=== PATIENT | female | born 1950 | race Caucasian/White ===

== ENCOUNTER 2022-09-29 16:55 | Emergency (ER) | payer MEDICARE ==
--- NOTE | 2022-09-29 17:02 | ERPHSYRPT ---
- History of Present Illness Time Seen by Provider: 09/29/22 17:02 Source: patient, EMS Exam Limitations: no limitations Physician History: This is a 72-year-old white female patient was brought into the emergency department because of worsening shortness of breath and associated fever. Patient was seen at her outpatient clinic physician's office and found to have a fever 103 and was given Tylenol. By the time she has arrived to the emergency department, her fever has resolved and her temperature is 98.8 F. Patient wears 2 L of oxygen via nasal cannula and in the emergency department her oxygen saturation levels on this level of oxygen is 98 to 99%. Patient is currently being treated with chemotherapy for lung cancer. Her last dose of chemotherapy was 2 days ago. Patient denies chest pain. She has no abdominal pain. Patient is a former smoker. Patient does have a history of coronary artery disease. Timing/Duration: today Severity of Dyspnea-Max: mild Severity of Dyspnea-Current: mild Possible Cause: occasional episodes Modifying Factors: Improves With: activity Associated Symptoms: cough, edema (Mild pedal and ankle edema bilaterally), ankle swelling (Mild bilateral), No chest pain/discomfort, No calf pain Allergies/Adverse Reactions: No Known Drug Allergies Allergy (Unverified 09/29/22 17:00) Travel Risk - Coronavirus Screening Are you exhibiting any of the following symptoms?: Yes Symptoms: Fever, Shortness of Breath Close contact with a COVID-19 positive Pt in past 14-21 Days: No - Vaccine Status Have you recieved a Covid-19 vaccination: Yes - Review of Systems Constitutional: Fever Eyes: No Symptoms Ears, Nose, & Throat: No Symptoms Respiratory: Dyspnea Cardiac: No Symptoms Abdominal/Gastrointestinal: No Symptoms Genitourinary Symptoms: No Symptoms Musculoskeletal: No Symptoms Skin: No Symptoms Neurological: No Symptoms Psychological: No Symptoms Endocrine: No Symptoms Hematologic/Lymphatic: No Symptoms Immunological/Allergic: No Symptoms All Other Systems: Reviewed and Negative - Past Medical History Pertinent Past Medical History: Yes Cardiac History: Coronary Artery Disease, Myocardial Infarction ([place]) Respiratory History: Lung Cancer Musculoskeletal History: Arthritis - Past Surgical History Past Surgical History: Yes Cardiac: Cardiac Catheterization, Cardiac Stent Gastrointestinal: Appendectomy, Cholecystectomy Female Surgical History: Hysterectomy Other Surgical History: PORT A CATH - Social History Drug Use: none - Nursing Vital Signs Nursing Vital Signs: Initial Vital Signs O2 Sat by Pulse Oximetry 96 09/29/22 16:55 Pain Scale Pain Intensity 0 - Physical Exam General Appearance: no apparent distress, alert, obese Eye Exam: PERRL/EOMI, eyes nml inspection Ears, Nose, Throat Exam: hearing grossly normal, normal ENT inspection, normal pharynx Neck Exam: normal inspection, non-tender, supple, full range of motion Respiratory Exam: normal breath sounds, lungs clear, airway intact, No chest tenderness, No respiratory distress Cardiovascular/Chest Exam: normal heart sounds, regular rate/rhythm Abdominal/Gastrointestinal Exam: soft, normal bowel sounds, No tenderness Rectal Exam: not done Extremity Exam: non-tender, normal range of motion, pedal edema (Mild bilateral feet and ankles) Neurologic Exam: alert, oriented x 3, cooperative, shoe 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 as tested, normal mood/affect, nml cerebellar function, nml station & gait, sensation nml Skin Exam: normal color, warm, dry Lymphatic Exam: No adenopathy SpO2 Interpretation: normal O2 Delivery: Nasal Cannula (2 L nasal cannula) - Course Nursing assessment & vital signs reviewed: Yes EKG Interpreted by Me: RATE (105), Sinus Tach, NORMAL AXIS, NORMAL INTERVALS, NORMAL QRS, NORMAL ST-T, Other (No acute ischemic changes on today's EKG.) Ordered Tests: Active Orders 24 hr Category Date Time Status EKG-ER Only STAT Care 09/29/22 17:13 Active IV Insertion STAT Care 09/29/22 17:13 Active Pulse Oximetry (ED) STAT Care 09/29/22 17:13 Active CHEST 1 VIEW (PORTABLE) Stat Exams 09/29/22 17:14 Taken BLOOD CULTURE Stat Lab 09/29/22 18:55 Received CBC W DIFF Stat Lab 09/29/22 18:55 Results CMP Stat Lab 09/29/22 18:55 Completed Lactic Acid Stat Lab 09/29/22 18:50 Completed Manual Differential NC Stat Lab 09/29/22 18:55 Results Bowie Screen Stat Lab 09/29/22 18:55 Completed NT PRO BNPII Stat Lab 09/29/22 18:55 Completed Pathologist Review Stat Lab 09/29/22 18:55 Results TROPONIN Q4H Lab 09/29/22 18:55 Completed TROPONIN Q4H Lab 09/29/22 21:15 Ordered TROPONIN Q4H Lab 09/30/22 01:15 Ordered UA W/RFX UR CULTURE Stat Lab 09/29/22 20:12 Completed Medication Summary Generic Name Dose Route Start Last Admin Trade Name Raudel PRN Reason Stop Dose Admin Sodium Chloride 1,000 mls @ 100 mls/hr 09/29/22 17:15 09/29/22 19:00 Sodium Chloride 0.9% 1000 Ml IV 10/29/22 17:14 100 mls/hr .Q10H STEPHANIE Administration Levofloxacin 500 mg 09/29/22 20:45 Levofloxacin 500 Mg Tablet PO 09/29/22 20:46 STAT ONE Lab/Rad Data: Laboratory Result Diagrams 09/29/22 18:55 09/29/22 18:55 Laboratory Results 09/29/22 09/29/22 09/29/22 Range/Units 20:12 18:55 18:55 WBC (4.0-10.5) x10^3/uL RBC (4.1-5.4) x10^6/uL Hgb (12.0-16.0) g/dL Hct (35-47) % MCV (78-100) fL MCH (26-32) pg MCHC (32-36) g/dL RDW (11.5-14.0) % Plt Count (150-450) x10^3/uL MPV (7.5-11.0) fL Segmented Neutrophils (36.0-66.0) % Lymphocytes (Manual) (24-44) % Platelet Estimate (NORMAL) RBC Morphology Microcytosis Macrocytosis Smear Path Review Sodium (137-145) mmol/L Potassium (3.5-5.1) mmol/L Chloride (98-107) mmol/L Carbon Dioxide (22-30) mmol/L Anion Gap (5-15) MEQ/L BUN (7-17) mg/dL Creatinine (0.52-1.04) mg/dL Estimated GFR ML/MIN Glucose (74-106) mg/dL Lactic Acid (0.4-2.0) Calcium (8.4-10.2) mg/dL Total Bilirubin (0.2-1.3) mg/dL AST (14-36) U/L ALT (0-35) U/L Alkaline Phosphatase (38-126) U/L Troponin I < 0.012 (0.000-0.034) ng/mL NT-Pro-B Natriuret Pep (<300) pg/mL Serum Total Protein (6.3-8.2) g/dL Albumin (3.5-5.0) g/dL Urine Color Dark Yellow A (Yellow) Urine Appearance Clear (Clear) Urine pH 5.5 (4.6-8.0) Ur Specific [place] 1.025 (1.005-1.030) Urine Protein Trace A (Negative) Urine Glucose (UA) Negative (Negative) mg/dL Urine Ketones Trace A (Negative) Urine Blood Negative (Negative) Urine Nitrite Negative (Negative) Urine Bilirubin Negative (Negative) Urine Urobilinogen 1.0 A (0.2) mg/dL Ur Leukocyte Esterase Trace A (Negative) U Hyaline Cast (Auto) NONE SEEN (0-2) /LPF Urine Microscopic RBC 0-2 (0-5) /HPF Urine Microscopic WBC 6-10 A (0-5) /HPF Ur Epithelial Cells Moderate A (None Seen) /HPF Urine Bacteria None Seen (None Seen) /HPF Urine Culture Reflexed NO (NO) Monoscreen NEGATIVE (Negative) Influenza Type A Ag (NEGATIVE) Influenza Type B Ag (NEGATIVE) RSV (PCR) (NEGATIVE) SARS-CoV-2 (PCR) (NEGATIVE) 09/29/22 09/29/22 09/29/22 Range/Units 18:55 18:55 18:50 WBC 9.3 (4.0-10.5) x10^3/uL RBC 2.47 L (4.1-5.4) x10^6/uL Hgb 8.4 L (12.0-16.0) g/dL Hct 27.3 L (35-47) % MCV 110.5 H (78-100) fL MCH 34.0 H (26-32) pg MCHC 30.8 L (32-36) g/dL RDW 16.5 H (11.5-14.0) % Plt Count 69 L (150-450) x10^3/uL MPV 10.8 (7.5-11.0) fL Segmented Neutrophils 88 H (36.0-66.0) % Lymphocytes (Manual) 12 L (24-44) % Platelet Estimate NORMAL (NORMAL) RBC Morphology ABNORMAL Microcytosis 1+ Macrocytosis 1+ Smear Path Review Pending Sodium 136 L (137-145) mmol/L Potassium 3.7 (3.5-5.1) mmol/L Chloride 101 (98-107) mmol/L Carbon Dioxide 25 (22-30) mmol/L Anion Gap 13.3 (5-15) MEQ/L BUN 23 H (7-17) mg/dL Creatinine 0.92 (0.52-1.04) mg/dL Estimated GFR > 60.0 ML/MIN Glucose 124 H (74-106) mg/dL Lactic Acid 1.6 (0.4-2.0) Calcium 8.4 (8.4-10.2) mg/dL Total Bilirubin 1.20 (0.2-1.3) mg/dL AST 37 H (14-36) U/L ALT 40 H (0-35) U/L Alkaline Phosphatase 92 (38-126) U/L Troponin I (0.000-0.034) ng/mL NT-Pro-B Natriuret Pep 1610 (<300) pg/mL Serum Total Protein 6.3 (6.3-8.2) g/dL Albumin 3.4 L (3.5-5.0) g/dL Urine Color (Yellow) Urine Appearance (Clear) Urine pH (4.6-8.0) Ur Specific [place] (1.005-1.030) Urine Protein (Negative) Urine Glucose (UA) (Negative) mg/dL Urine Ketones (Negative) Urine Blood (Negative) Urine Nitrite (Negative) Urine Bilirubin (Negative) Urine Urobilinogen (0.2) mg/dL Ur Leukocyte Esterase (Negative) U Hyaline Cast (Auto) (0-2) /LPF Urine Microscopic RBC (0-5) /HPF Urine Microscopic WBC (0-5) /HPF Ur Epithelial Cells (None Seen) /HPF Urine Bacteria (None Seen) /HPF Urine Culture Reflexed (NO) Monoscreen (Negative) Influenza Type A Ag (NEGATIVE) Influenza Type B Ag (NEGATIVE) RSV (PCR) (NEGATIVE) SARS-CoV-2 (PCR) (NEGATIVE) 09/29/22 Range/Units 17:30 WBC (4.0-10.5) x10^3/uL RBC (4.1-5.4) x10^6/uL Hgb (12.0-16.0) g/dL Hct (35-47) % MCV (78-100) fL MCH (26-32) pg MCHC (32-36) g/dL RDW (11.5-14.0) % Plt Count (150-450) x10^3/uL MPV (7.5-11.0) fL Segmented Neutrophils (36.0-66.0) % Lymphocytes (Manual) (24-44) % Platelet Estimate (NORMAL) RBC Morphology Microcytosis Macrocytosis Smear Path Review Sodium (137-145) mmol/L Potassium (3.5-5.1) mmol/L Chloride (98-107) mmol/L Carbon Dioxide (22-30) mmol/L Anion Gap (5-15) MEQ/L BUN (7-17) mg/dL Creatinine (0.52-1.04) mg/dL Estimated GFR ML/MIN Glucose (74-106) mg/dL Lactic Acid (0.4-2.0) Calcium (8.4-10.2) mg/dL Total Bilirubin (0.2-1.3) mg/dL AST (14-36) U/L ALT (0-35) U/L Alkaline Phosphatase (38-126) U/L Troponin I (0.000-0.034) ng/mL NT-Pro-B Natriuret Pep (<300) pg/mL Serum Total Protein (6.3-8.2) g/dL Albumin (3.5-5.0) g/dL Urine Color (Yellow) Urine Appearance (Clear) Urine pH (4.6-8.0) Ur Specific [place] (1.005-1.030) Urine Protein (Negative) Urine Glucose (UA) (Negative) mg/dL Urine Ketones (Negative) Urine Blood (Negative) Urine Nitrite (Negative) Urine Bilirubin (Negative) Urine Urobilinogen (0.2) mg/dL Ur Leukocyte Esterase (Negative) U Hyaline Cast (Auto) (0-2) /LPF Urine Microscopic RBC (0-5) /HPF Urine Microscopic WBC (0-5) /HPF Ur Epithelial Cells (None Seen) /HPF Urine Bacteria (None Seen) /HPF Urine Culture Reflexed (NO) Monoscreen (Negative) Influenza Type A Ag NEGATIVE (NEGATIVE) Influenza Type B Ag NEGATIVE (NEGATIVE) RSV (PCR) NEGATIVE (NEGATIVE) SARS-CoV-2 (PCR) NEGATIVE (NEGATIVE) - Progress Progress: improved, re-examined Air Movement: good Progress Note: 09/29/22 20:38 Chest x-ray was interpreted by me. There is a right upper lobe mass but no ob vious infiltrate on my assessment of this film. This patient has medical issues of moderate complexity. The level of complexity and the work-up performed is based on review of the patient's past medical history, history of present illness, review of the patient's medication list, review of the patient's drug allergies and physical findings on examination. The work-up included placement of intravenous line and infusion of normal saline solution, blood cultures, CBC, CMP, chest x-ray, lactic acid level and urinalysis. At this point I reviewed all of the results of the above studies that were performed. I do not have a source of the the fever that she had prior to arrival. Patient has been afebrile during her stay here. She has not been tachycardic. Her room air oxygenation level has been 98%. She is in no pain. Since the patient is on chemotherapy, and supposedly had an episode of fever as high as 103 F prior to arrival, I will place her on Levaquin. I will provide her with an oral dose now and then 7 days of Levaquin 500 mg daily. Patient desires to go home and she said she lives close and if there is any issues she will return. I think this is reasonable. Patient also has hemoglobin 8.4. I do not have a comparison, prior hemoglobin level. 09/29/22 20:47 Blood Culture(s) Obtained: Yes Antibiotics given: Yes Counseled pt/family regarding: lab results, diagnosis, need for follow-up, mariza elaine Medical Desision Making - Discussion of managment Reviewed:: Test results Agreed on:: Treatment plan, need for follow-up - Diagnostic Testing Diagnostic test were ordered, analyzed, and reviewed by me: Yes Radiological Interpretation: Interpreted by me - Risk of complications The pt has a mod risk of morbidity or mortality based on: Need for prescription drug management - Departure Departure Disposition: Home Clinical Impression: Lung cancer, Fever of unknown origin, Anemia Condition: Stable Critical Care Time: No Referrals: MAIH PRESTON [Primary Care Provider] - Follow up/PCP as directed Additional Instructions: Drink plenty of fluids. Take your antibiotics as prescribed. Take all your other medication as prescribed. Contact your primary care provider and your oncologist tomorrow to obtain further instructions and management. Prescriptions: Levofloxacin [Levaquin 500 MG Tablet] 500 mg PO DAILY #7 tablet
[2022-09-29] MEDS ORDERED: Sodium Chloride 0.9% 1000 ML 1,000 ML IV SCH (17:15)
[2022-09-29 18:18] LABS: INFLUENZA A NEGATIVE (NEGATIVE); INFLUENZA B NEGATIVE (NEGATIVE); RESPIRATORY SYNCTIAL VIRUS NEGATIVE (NEGATIVE); SARS-CoV-2 Xpert Express NEGATIVE (NEGATIVE)
[2022-09-29] MEDS ORDERED: Sodium Chloride 0.9% 1000 ML 1,000 ML ONE (18:57)
[2022-09-29 19:02] LABS: Hematocrit 27.3 % (35-47); Hemoglobin 8.4 g/dL (12.0-16.0); Mean Cell Volume 110.5 fL (78-100); Mean Corpuscular Hgb Concent. 30.8 g/dL (32-36); Mean Platelet Volume 10.8 fL (7.5-11.0); Platelet Count 69 x10^3/uL (150-450); Red Blood Count 2.47 x10^6/uL (4.1-5.4); Red Cell Distribution Width 16.5 % (11.5-14.0); White Blood Count 9.3 x10^3/uL (4.0-10.5)
[2022-09-29 19:25] LABS: ALBUMIN 3.4 g/dL (3.5-5.0); ALKALINE PHOSPHATASE 92 U/L (38-126); ANION GAP 13.3 MEQ/L (5-15); BLOOD UREA NITROGEN 23 mg/dL (7-17); CHLORIDE 101 mmol/L (98-107); Calcium 8.4 mg/dL (8.4-10.2); Carbon Dioxide 25 mmol/L (22-30); Creatinine 1 0.92 mg/dL (0.52-1.04); EST GLOMERULAR FILTRATION RATE > 60.0 ML/MIN; Glucose 124 mg/dL (74-106); NT PRO BNPII 1610 pg/mL (<300); Potassium 3.7 mmol/L (3.5-5.1); SGOT/AST 37 U/L (14-36); SGPT/ALT 40 U/L (0-35); SODIUM 136 mmol/L (137-145); Total Protein 6.3 g/dL (6.3-8.2)
[2022-09-29 20:34] LABS: Lymphocytes 12 % (24-44); Macrocytosis 1+; Microcytosis 1+; Neutrophils 88 % (36.0-66.0); Platelet Estimate NORMAL (NORMAL); Total Cells Counted 100
[2022-09-29 20:34] LABS: Appearance Clear (Clear); Bacteria None Seen /HPF (None Seen); Bilirubin Negative (Negative); Blood Negative (Negative); Epithelial Cells Moderate /HPF (None Seen); Glucose, Urine Negative (Negative); Hyaline Casts NONE SEEN /LPF (0-2); Ketones Trace (Negative); Leukocyte Esterase Trace (Negative); Nitrite Negative (Negative); Ph 5.5 (4.6-8.0); Protein,Urine Dip Trace (Negative); RBC 0-2 /HPF (0-5); Specific Gravity 1.025 (1.005-1.030)
[2022-09-29 20:35] LABS: ADD URINE CULTURE? NO (NO)
[2022-09-29] MEDS ORDERED: Levofloxacin 500 MG Tablet PO ONE (20:45)
[2022-09-29] MEDS ORDERED: Levofloxacin 500 MG Tablet ONE (20:48)
[2022-09-29 21:11] VITALS: BP 106/73; PULSE 97; O2SAT 97
--- NOTE | 2022-09-30 08:32 | XRAY ---
Indication: Short of breath. Fever. History right upper lobe cancer. Comparison: None Portable chest demonstrates right upper lobe consolidation with volume loss presumed known malignancy. Subsequent hemidiaphragm elevation. Remaining heart and left lung unremarkable with incidental right Port-A-Cath. Bony thorax intact.
== END 2022-09-29 21:24 | disposition home or self-care (01) ==
LOC: ED 16:55
DX: R50.9 Fever, unspecified (principal); D64.9 Anemia, unspecified; C34.91 Malignant neoplasm of unspecified part of right bronchus or lung; R06.02 Shortness of breath; Z99.81 Dependence on supplemental oxygen; I25.10 Atherosclerotic heart disease of native coronary artery without angina pectoris
CPT/HCPCS: 0241U; 36000; 36415; 71045; 80053; 81001; 83605; 83880; 84484; 85025; 86308; 87040; 93005; 94760; 99284; A9270-GY

== ENCOUNTER 2022-11-03 12:39 | Emergency (ER) | payer MEDICARE ==
[2022-11-03 13:53] VITALS: PULSE 100
[2022-11-03 14:03] VITALS: BP 113/58; O2SAT 81
--- NOTE | 2022-11-03 14:21 | ERPHSYRPT ---
- History of Present Illness Time Seen by Provider: 11/03/22 12:45 Source: patient Exam Limitations: no limitations Patient Subjective Stated Complaint: Pt c/o of rectum pain that she thinks is due to hemorrhoids Triage Nursing Assessment: Pt was brought to the ER by her son, samina trinidad, denies pain at this time, pt stated that she feels like she has spasms in her rectum and causing a lot of pain in the hemorrhoids, pt is receiving chemo for lung cancer at this time and has been for some time with a variety of different meds due to different side effects to her heart, pulses normal, skin n/w/d Physician History: Patient states that she has rectal pain. Has been going on for approximately 1 week. No falls or trauma. Patient does take chemotherapy. She has no obvious rectal bleeding. Patient states that she does have a history of hemorrhoids. No fever no chills. No systemic signs of illness. Patient has been taking home Preparation H for pain control. Feels that this only helped somewhat. She then states when she has a bowel movement she feels "spasms". She then has trouble pooping. Allergies/Adverse Reactions: No Known Drug Allergies Allergy (Verified 11/03/22 13:53) Home Medications: Albuterol 2.5 mg/3 ml Neb [Proventil 2.5 mg/3 ml Neb] 1 neb PO TID 11/03/22 [History] Albuterol Sulfate [Albuterol Sulfate Hfa] 32 inh PO QID 11/03/22 [History] Alendronate Sodium [Fosamax] 70 mg PO UD 11/03/22 [History] Aspirin EC 81 mg [Ecotrin 81 mg] 81 mg PO DAILY 11/03/22 [History] Atorvastatin Calcium [Lipitor 40Mg] 40 mg PO DAILY 11/03/22 [History] Carvedilol 3.125 mg [Coreg 3.125 MG] 3.125 mg PO BID 11/03/22 [History] Fluticasone/Umeclidin/Vilanter [Trelegy Ellipta 100-62.5-25] 1 each IH UD 11/03/22 [History] Furosemide 20 mg [Lasix 20 mg] 20 mg PO DAILY 11/03/22 [History] Gabapentin [Neurontin ] 300 mg PO TID 11/03/22 [History] Levothyroxine Sodium 25 mcg PO DAILY 11/03/22 [History] Potassium Chloride 40 meq PO BID 11/03/22 [History] Rivaroxaban [Xarelto] 20 mg PO DAILY 11/03/22 [History] Sacubitril/Valsartan [Entresto 24 mg-26 mg Tablet] 2 tab PO BID 11/03/22 [History] Hx Tetanus, Diphtheria Vaccination/Date Given: No Hx Influenza Vaccination/Date Given: No Hx Pneumococcal Vaccination/Date Given: Yes Travel Risk - International Travel Have you traveled outside of the country in past 3 weeks: No - Coronavirus Screening Are you exhibiting any of the following symptoms?: No Close contact with a COVID-19 positive Pt in past 14-21 Days: No - Vaccine Status Have you recieved a Covid-19 vaccination: Yes K[employer]: [employer] - Vaccination Dates Date of 2cond Vaccination (if applicable): 2020 - Review of Systems Constitutional: No Fever, No Chills Eyes: No Symptoms Ears, Nose, & Throat: No Symptoms Respiratory: No Cough, No Dyspnea Cardiac: No Chest Pain, No Edema, No Syncope Abdominal/Gastrointestinal: Other (Rectal pain), No Abdominal Pain, No Nausea, No Vomiting, No Diarrhea Genitourinary Symptoms: No Dysuria Musculoskeletal: No Back Pain, No Neck Pain Skin: No Rash Neurological: No Dizziness, No Focal Weakness, No Sensory Changes Psychological: No Symptoms Endocrine: No Symptoms All Other Systems: Reviewed and Negative - Past Medical History Pertinent Past Medical History: Yes Cardiac History: Coronary Artery Disease, Myocardial Infarction ([place]) Respiratory History: Lung Cancer Musculoskeletal History: Arthritis GI Medical History: Hemorrhoids - Past Surgical History Past Surgical History: Yes Cardiac: Cardiac Catheterization, Cardiac Stent Gastrointestinal: Appendectomy, Cholecystectomy Female Surgical History: Hysterectomy Other Surgical History: PORT A CATH - Social History Smoking Status: Former smoker Exposure to second hand smoke: No Drug Use: none Patient Lives Alone: Yes - Nursing Vital Signs Nursing Vital Signs: Initial Vital Signs Temperature 97.3 F 11/03/22 13:32 Pulse Rate 100 H 11/03/22 13:32 Blood Pressure 121/77 11/03/22 13:32 O2 Sat by Pulse Oximetry 99 11/03/22 13:32 Pain Scale Pain Intensity 0 - Physical Exam General Appearance: no apparent distress, alert Eye Exam: PERRL/EOMI, eyes nml inspection Ears, Nose, Throat Exam: normal ENT inspection, TMs normal, pharynx normal, moist mucous membranes Neck Exam: normal inspection, non-tender, supple, full range of motion Respiratory Exam: normal breath sounds, lungs clear, No respiratory distress Cardiovascular Exam: regular rate/rhythm, normal heart sounds, normal peripheral pulses Gastrointestinal/Abdomen Exam: soft, normal bowel sounds, other (Chaperoned rectal exam. Patient appears to have a hemorrhoid at the 9 o'clock position. No signs of rectal abscess. No signs of gluteal cleft abscess. Internal rectal exam shows no bright red blood, gross bleeding. No signs of anal fissure or other obvious injuries. spchinter is normal.), No tenderness, No mass Back Exam: normal inspection, normal range of motion, No CVA tenderness, No vertebral tenderness Extremity Exam: normal inspection, normal range of motion, pelvis stable Neurologic Exam: alert, oriented x 3, cooperative, normal mood/affect, nml cerebellar function, nml station & gait, sensation nml, No motor deficits Skin Exam: normal color, warm, dry, No rash Lymphatic Exam: No adenopathy SpO2: 81 - Course Nursing assessment & vital signs reviewed: Yes - Progress Progress: improved Progress Note: 11/03/22 14:41 On exam patient appears to have a small hemorrhoid. From the history sounds like patient does have hemorrhoids with needing stool softeners. We will place patient on a stool softener, and give patient hemorrhoid cream medication. Close follow-up with PCP. Return here for new or changing symptoms. Counseled pt/family regarding: diagnosis, need for follow-up Medical Desision Making - Risk of complications Minimal Risk: Minimal risk of morbidity - Departure Departure Disposition: Home Clinical Impression: Acute hemorrhoid Condition: Stable Critical Care Time: No Referrals: MAHI PRESTON [Primary Care Provider] - Follow up/PCP as directed Instructions: Hemorrhoids (DC) Prescriptions: Hydrocortisone 2.5% 30 gm [Anusol-Hc 2.5% Cream 30 gm] 30 gm TP BID PRN #2 Sennosides/Docusate Sodium [Docusate Sodium-Sennosides Tab] 1 each PO BID 15 Days #30 tablet
== END 2022-11-03 15:07 | disposition home or self-care (01) ==
LOC: ED 12:39
DX: K64.9 Unspecified hemorrhoids (principal); Z79.01 Long term (current) use of anticoagulants; Z79.899 Other long term (current) drug therapy
CPT/HCPCS: 99281

== ENCOUNTER 2022-11-20 23:09 | Emergency (ER) | payer MEDICARE ==
--- NOTE | 2022-11-20 23:17 | ERPHSYRPT ---
- History of Present Illness Time Seen by Provider: 11/20/22 23:17 Source: patient, family Exam Limitations: no limitations Physician History: This is a 72-year-old white female patient who was brought into the emergency department by her daughter who offered independent history on this patient's issue. Patient presents with fever as high as 101 F and nausea vomiting symptoms. Patient has oxygen dependent COPD with 2 L nasal cannula oxygen supplementation. She has a history of lung cancer and has been taking chemotherapy for this. Patient does have a history of coronary disease and cardiac stents in place and does take Xarelto. In addition, the patient has a history of chronic anemia in the range of 8-8.5, hypertension, hyperlipidemia and hypothyroidism. The patient received 1000 mg of Tylenol approximately 20-30 prior to arrival to treat the fever of 101 F. She was diagnosed with an ear infection yesterday and has received 2 doses of amoxicillin per daughter's report. Patient does not have chest pain. Patient receives chemotherapy every other Tuesday. This past Tuesday she did not receive chemotherapy because she underwent a cataract surgery. 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: Acetaminophen Associated Symptoms: nausea/vomiting, weakness Allergies/Adverse Reactions: No Known Drug Allergies Allergy (Verified 11/20/22 23:32) Home Medications: Albuterol 2.5 mg/3 ml Neb [Proventil 2.5 mg/3 ml Neb] 1 neb PO TID 11/03/22 [History] Albuterol Sulfate [Albuterol Sulfate Hfa] 32 inh PO QID 11/03/22 [History] Alendronate Sodium [Fosamax] 70 mg PO UD 11/03/22 [History] Aspirin EC 81 mg [Ecotrin 81 mg] 81 mg PO DAILY 11/03/22 [History] Atorvastatin Calcium [Lipitor 40Mg] 40 mg PO DAILY 11/03/22 [History] Carvedilol 3.125 mg [Coreg 3.125 MG] 3.125 mg PO BID 11/03/22 [History] Fluticasone/Umeclidin/Vilanter [Trelegy Ellipta 100-62.5-25] 1 each IH UD 11/03/22 [History] Furosemide 20 mg [Lasix 20 mg] 20 mg PO DAILY 11/03/22 [History] Gabapentin [Neurontin ] 300 mg PO TID 11/03/22 [History] Levothyroxine Sodium 25 mcg PO DAILY 11/03/22 [History] Potassium Chloride 40 meq PO BID 11/03/22 [History] Rivaroxaban [Xarelto] 20 mg PO DAILY 11/03/22 [History] Sacubitril/Valsartan [Entresto 24 mg-26 mg Tablet] 2 tab PO BID 11/03/22 [History] Hx Tetanus, Diphtheria Vaccination/Date Given: No Hx Influenza Vaccination/Date Given: No Hx Pneumococcal Vaccination/Date Given: Yes Travel Risk - International Travel Have you traveled outside of the country in past 3 weeks: No - Coronavirus Screening Are you exhibiting any of the following symptoms?: Yes Symptoms: Fever, Vomiting/Diarrhea - Vaccine Status Have you recieved a Covid-19 vaccination: Yes 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: [employer] - Vaccination Dates Date of 2cond Vaccination (if applicable): 2020 - Review of Systems Constitutional: Fever, Weakness Eyes: No Symptoms Ears, Nose, & Throat: No Symptoms Respiratory: No Symptoms Cardiac: No Symptoms Abdominal/Gastrointestinal: Nausea, Vomiting Genitourinary Symptoms: No Symptoms Musculoskeletal: No Symptoms Skin: No Symptoms Neurological: No Symptoms Psychological: No Symptoms Endocrine: No Symptoms Hematologic/Lymphatic: No Symptoms Immunological/Allergic: No Symptoms All Other Systems: Reviewed and Negative - Past Medical History Pertinent Past Medical History: Yes Cardiac History: Coronary Artery Disease, Myocardial Infarction (NE) Respiratory History: Lung Cancer Musculoskeletal History: Arthritis GI Medical History: Hemorrhoids - Past Surgical History Past Surgical History: Yes Cardiac: Cardiac Catheterization, Cardiac Stent Gastrointestinal: Appendectomy, Cholecystectomy Female Surgical History: Hysterectomy Other Surgical History: PORT A CATH - Social History Smoking Status: Former smoker Exposure to second hand smoke: No Drug Use: none Patient Lives Alone: Yes - Nursing Vital Signs Nursing Vital Signs: Initial Vital Signs Temperature 100.7 F 11/20/22 23:35 Pulse Rate 100 H 11/20/22 23:35 Respiratory Rate 18 11/20/22 23:35 Blood Pressure 156/80 11/20/22 23:35 O2 Sat by Pulse Oximetry 97 11/20/22 23:35 Pain Scale Pain Intensity 6 - Physical Exam General Appearance: mild distress, alert, anxiety Eye Exam: PERRL/EOMI, eyes nml inspection ENT Exam: normal ENT inspection, no apparent trauma, hearing grossly normal Neck Exam: normal inspection, non-tender, supple, full range of motion Respiratory Exam: normal breath sounds, lungs clear, no respiratory distress, no accessory muscle use, No chest non-tender, No respiratory distress Cardiovascular/Chest Exam: normal heart sounds, regular rate/rhythm Gastrointestinal/Abdominal Exam: soft, non tender, no distention, no mass, no guarding, no ecchymosis, no organomegaly, no pulsatile mass, normal bowel sounds Pelvic Exam: not done Rectal Exam: not done Extremity Exam: non-tender, normal range of motion, normal inspection Neurologic Exam: alert, oriented x 3, cooperative, segmental paving supervisor II-XII nml as tested, normal mood/affect, nml cerebellar function, nml station & gait Skin Exam: normal color, warm, dry Lymphatic: No adenopathy SpO2 Interpretation: normal Ordered Tests: Active Orders 24 hr Category Date Time Status IV Insertion STAT Care 11/20/22 23:33 Active Pulse Oximetry (ED) STAT Care 11/20/22 23:33 Active CHEST 1 VIEW (PORTABLE) Stat Exams 11/20/22 23:34 Taken CULTURE,URINE Stat Lab 11/21/22 00:12 Received Lactic Acid Stat Lab 11/20/22 23:33 Completed UA W/RFX UR CULTURE Stat Lab 11/21/22 00:12 Completed Medication Summary Generic Name Dose Route Start Last Admin Trade Name Freq PRN Reason Stop Dose Admin Ceftriaxone Sodium/Dextrose 1 g in 50 mls @ 100 mls/hr 11/21/22 01:19 Rocephin 1 Gm-D5w 50 Ml Bag IV 11/21/22 01:48 STAT STA Discontinued Medications Generic Name Dose Route Start Last Admin Trade Name Freq PRN Reason Stop Dose Admin Sodium Chloride 1,000 mls @ 999 mls/hr 11/20/22 23:33 11/21/22 00:17 Sodium Chloride 0.9% 1000 Ml IV 11/21/22 00:33 999 mls/hr .Q1H1M STA Administration Sodium Chloride Confirm 11/21/22 00:14 Sodium Chloride 0.9% 1000 Ml Administered 11/21/22 00:15 Dose 1,000 mls @ ud .ROUTE .STK-MED ONE Ketorolac Tromethamine 30 mg 11/21/22 00:22 11/21/22 00:23 Ketorolac Tromethamine 30 Mg/Ml Inj IV 11/21/22 00:23 30 mg STAT ONE Administration Ketorolac Tromethamine Confirm 11/21/22 00:21 Ketorolac Tromethamine 30 Mg/Ml Inj Administered 11/21/22 00:22 Dose 30 mg .ROUTE .STK-MED ONE Ondansetron HCl 4 mg 11/20/22 23:33 11/21/22 00:17 Ondansetron Hcl 4 Mg/2 Ml Vial IV 11/20/22 23:34 4 mg STAT STA Administration Ondansetron HCl Confirm 11/21/22 00:13 Ondansetron Hcl 4 Mg/2 Ml Vial Administered 11/21/22 00:14 Dose 4 mg .ROUTE .STK-MED ONE Lab/Rad Data: Laboratory Result Diagrams 11/20/22 00:12 11/20/22 00:12 Laboratory Results 11/21/22 11/21/22 11/20/22 Range/Units 00:35 00:12 00:12 WBC (4.0-10.5) x10^3/uL RBC (4.1-5.4) x10^6/uL Hgb (12.0-16.0) g/dL Hct (35-47) % MCV (78-100) fL MCH (26-32) pg MCHC (32-36) g/dL RDW (11.5-14.0) % Plt Count (150-450) x10^3/uL MPV (7.5-11.0) fL Gran % (36.0-66.0) % Immature Gran % (Auto) (0.00-0.4) % Nucleat RBC Rel Count (0.00-0.1) % Eos # (Auto) (0-0.5) x10^3/uL Immature Gran # (Auto) (0.00-0.03) x10^3u/L Absolute Lymphs (auto) (1.0-4.6) x10^3/uL Absolute Monos (auto) (0.0-1.3) x10^3/uL Absolute Nucleated RBC (0.00-0.01) x10^3u/L Lymphocytes % (24.0-44.0) % Monocytes % (0.0-12.0) % Eosinophils % (0.00-5.0) % Basophils % (0.0-0.4) % Absolute Granulocytes (1.4-6.9) x10^3/uL Basophils # (0-0.4) x10^3/uL Sodium (137-145) mmol/L Potassium (3.5-5.1) mmol/L Chloride (98-107) mmol/L Carbon Dioxide (22-30) mmol/L Anion Gap (5-15) MEQ/L BUN (7-17) mg/dL Creatinine (0.52-1.04) mg/dL Estimated GFR ML/MIN Glucose (74-106) mg/dL Lactic Acid 1.9 (0.4-2.0) Calcium (8.4-10.2) mg/dL Total Bilirubin (0.2-1.3) mg/dL AST (14-36) U/L ALT (0-35) U/L Alkaline Phosphatase (38-126) U/L Serum Total Protein (6.3-8.2) g/dL Albumin (3.5-5.0) g/dL Urine Color Yellow (Yellow) Urine Appearance Cloudy A (Clear) Urine pH 6.0 (4.6-8.0) Ur Specific Warren 1.025 (1.005-1.030) Urine Protein 30 (Negative) Urine Glucose (UA) Negative (Negative) mg/dL Urine Ketones Negative (Negative) Urine Blood Small A (Negative) Urine Nitrite Negative (Negative) Urine Bilirubin Negative (Negative) Urine Urobilinogen 1.0 A (0.2) mg/dL Ur Leukocyte Esterase Negative (Negative) U Hyaline Cast (Auto) NONE SEEN (0-2) /LPF Urine Microscopic RBC 11-20 A (0-5) /HPF Urine Microscopic WBC 3-5 (0-5) /HPF Ur Epithelial Cells Many A (None Seen) /HPF Urine Bacteria Few A (None Seen) /HPF Urine Yeast (Budding) Few A (None Seen) /HPF Urine Culture Reflexed YES (NO) Monoscreen NEGATIVE (NEGATIVE) Influenza Type A Ag (NEGATIVE) Influenza Type B Ag (NEGATIVE) RSV (PCR) (NEGATIVE) SARS-CoV-2 (PCR) (NEGATIVE) Group A Strep Antibody (NEGATIVE) 05/20/23 05/20/23 05/20/23 Range/Units 00:12 00:12 00:00 WBC 7.6 (4.0-10.5) x10^3/uL RBC 2.31 L (4.1-5.4) x10^6/uL Hgb 7.9 L (12.0-16.0) g/dL Hct 25.2 L (35-47) % MCV 109.1 H (78-100) fL MCH 34.2 H (26-32) pg MCHC 31.3 L (32-36) g/dL RDW 18.3 H (11.5-14.0) % Plt Count 124 L (150-450) x10^3/uL MPV 10.1 (7.5-11.0) fL Gran % 76.3 H (36.0-66.0) % Immature Gran % (Auto) 1.0 H (0.00-0.4) % Nucleat RBC Rel Count 0.0 (0.00-0.1) % Eos # (Auto) 0.17 (0-0.5) x10^3/uL Immature Gran # (Auto) 0.08 H (0.00-0.03) x10^3u/L Absolute Lymphs (auto) 0.51 L (1.0-4.6) x10^3/uL Absolute Monos (auto) 1.02 (0.0-1.3) x10^3/uL Absolute Nucleated RBC 0.00 (0.00-0.01) x10^3u/L Lymphocytes % 6.7 L (24.0-44.0) % Monocytes % 13.4 H (0.0-12.0) % Eosinophils % 2.2 (0.00-5.0) % Basophils % 0.4 (0.0-0.4) % Absolute Granulocytes 5.83 (1.4-6.9) x10^3/uL Basophils # 0.03 (0-0.4) x10^3/uL Sodium 133 L (137-145) mmol/L Potassium 4.3 (3.5-5.1) mmol/L Chloride 96 L (98-107) mmol/L Carbon Dioxide 31 H (22-30) mmol/L Anion Gap 10.5 (5-15) MEQ/L BUN 21 H (7-17) mg/dL Creatinine 0.87 (0.52-1.04) mg/dL Estimated GFR > 60.0 ML/MIN Glucose 132 H (74-106) mg/dL Lactic Acid (0.4-2.0) Calcium 8.3 L (8.4-10.2) mg/dL Total Bilirubin 0.90 (0.2-1.3) mg/dL AST 71 H (14-36) U/L ALT 53 H (0-35) U/L Alkaline Phosphatase 115 (38-126) U/L Serum Total Protein 6.8 (6.3-8.2) g/dL Albumin 3.3 L (3.5-5.0) g/dL Urine Color (Yellow) Urine Appearance (Clear) Urine pH (4.6-8.0) Ur Specific Warren (1.005-1.030) Urine Protein (Negative) Urine Glucose (UA) (Negative) mg/dL Urine Ketones (Negative) Urine Blood (Negative) Urine Nitrite (Negative) Urine Bilirubin (Negative) Urine Urobilinogen (0.2) mg/dL Ur Leukocyte Esterase (Negative) U Hyaline Cast (Auto) (0-2) /LPF Urine Microscopic RBC (0-5) /HPF Urine Microscopic WBC (0-5) /HPF Ur Epithelial Cells (None Seen) /HPF Urine Bacteria (None Seen) /HPF Urine Yeast (Budding) (None Seen) /HPF Urine Culture Reflexed (NO) Monoscreen (NEGATIVE) Influenza Type A Ag NEGATIVE (NEGATIVE) Influenza Type B Ag NEGATIVE (NEGATIVE) RSV (PCR) NEGATIVE (NEGATIVE) SARS-CoV-2 (PCR) NEGATIVE (NEGATIVE) Group A Strep Antibody (NEGATIVE) 11/20/22 Range/Units 00:00 WBC (4.0-10.5) x10^3/uL RBC (4.1-5.4) x10^6/uL Hgb (12.0-16.0) g/dL Hct (35-47) % MCV (78-100) fL MCH (26-32) pg MCHC (32-36) g/dL RDW (11.5-14.0) % Plt Count (150-450) x10^3/uL MPV (7.5-11.0) fL Gran % (36.0-66.0) % Immature Gran % (Auto) (0.00-0.4) % Nucleat RBC Rel Count (0.00-0.1) % Eos # (Auto) (0-0.5) x10^3/uL Immature Gran # (Auto) (0.00-0.03) x10^3u/L Absolute Lymphs (auto) (1.0-4.6) x10^3/uL Absolute Monos (auto) (0.0-1.3) x10^3/uL Absolute Nucleated RBC (0.00-0.01) x10^3u/L Lymphocytes % (24.0-44.0) % Monocytes % (0.0-12.0) % Eosinophils % (0.00-5.0) % Basophils % (0.0-0.4) % Absolute Granulocytes (1.4-6.9) x10^3/uL Basophils # (0-0.4) x10^3/uL Sodium (137-145) mmol/L Potassium (3.5-5.1) mmol/L Chloride (98-107) mmol/L Carbon Dioxide (22-30) mmol/L Anion Gap (5-15) MEQ/L BUN (7-17) mg/dL Creatinine (0.52-1.04) mg/dL Estimated GFR ML/MIN Glucose (74-106) mg/dL Lactic Acid (0.4-2.0) Calcium (8.4-10.2) mg/dL Total Bilirubin (0.2-1.3) mg/dL AST (14-36) U/L ALT (0-35) U/L Alkaline Phosphatase (38-126) U/L Serum Total Protein (6.3-8.2) g/dL Albumin (3.5-5.0) g/dL Urine Color (Yellow) Urine Appearance (Clear) Urine pH (4.6-8.0) Ur Specific Warren (1.005-1.030) Urine Protein (Negative) Urine Glucose (UA) (Negative) mg/dL Urine Ketones (Negative) Urine Blood (Negative) Urine Nitrite (Negative) Urine Bilirubin (Negative) Urine Urobilinogen (0.2) mg/dL Ur Leukocyte Esterase (Negative) U Hyaline Cast (Auto) (0-2) /LPF Urine Microscopic RBC (0-5) /HPF Urine Microscopic WBC (0-5) /HPF Ur Epithelial Cells (None Seen) /HPF Urine Bacteria (None Seen) /HPF Urine Yeast (Budding) (None Seen) /HPF Urine Culture Reflexed (NO) Monoscreen (NEGATIVE) Influenza Type A Ag (NEGATIVE) Influenza Type B Ag (NEGATIVE) RSV (PCR) (NEGATIVE) SARS-CoV-2 (PCR) (NEGATIVE) Group A Strep Antibody NOT DETECTED (NEGATIVE) - Progress Progress: improved Progress Note: 11/20/22 23:49 The nurses tried a few times to obtain IV access peripherally. However they were unsuccessful. Patient does have a functioning port present. Patient states that her security project manager/oncologist told her not to use that port. However that is the only access we have at this time. The patient will have to make the decision to allow us to use the port. The patient is in the emergency department with vomiting and fever. The nurses will talk with the patient again it is the patient's prerogative to refuse use of the Port-A-Cath. The patient understands this limits our ability to help her with diagnosis and treatment. 11/21/22 01:02 Chest x-ray was interpreted by me. There is a right upper lobe lung mass. No other acute cardiopulmonary processes appreciated. 11/21/22 01:22 Patient's medical issue is 1 of moderate complexity. Level of complexity and the work-up performed was based on the review of the patient's past medical history, review of the patient's medication list, review of the patient's drug allergy list, history of present illness, and physical findings on examination. Patient's work-up includes CBC, CMP, urinalysis, chest x-ray, flu swabs, strep swabs, accessing the patient's Port-A-Cath for blood draw and infusion of normal saline solution, I reviewed the results of the above-stated work-up. Patient has no acute or emergent findings. She is known to have a left ear infection. We will provide her with a single dose of Rocephin 1 g intravenously. Patient is to continue her amoxicillin as prescribed. I also provided her 30 mg intravenous Toradol which helped her headache somewhat but is not completely res olved. We will provide her with a half a milligram of Dilaudid for headache control. Patient states that her headache was causing her to have the nausea and small amount of vomiting when she arrived to the emergency department. Overall, she does states she is feeling better Counseled pt/family regarding: lab results, diagnosis, need for follow-up, rad results Medical Desision Making - Independent Historian Additional History obtained from: Child (Daughter) - Diagnostic Testing Diagnostic test were ordered, analyzed, and reviewed by me: Yes Radiological Interpretation: Interpreted by me - Risk of complications Low Risk: Low risk of morbidity from additional dx testing or treatment - Departure Departure Disposition: Home Clinical Impression: Left otitis media, Fever, Anemia, Headache Condition: Stable Critical Care Time: No Referrals: MAHI PRESTON [Primary Care Provider] - Follow up/PCP as directed Additional Instructions: Continue your amoxicillin antibiotic as prescribed. Take your other medication as prescribed. Drink plenty of fluids. May use Tylenol every 6 hours while awake. Do not exceed 4 g of Tylenol in a 24-hour period. Call your security project manager/oncologist on 11/22/2022 for further evaluation and management.
[2022-11-20] MEDS ORDERED: Sodium Chloride 0.9% 1000 ML 1,000 ML IV STA (23:33)
[2022-11-20] MEDS ORDERED: Zofran 4 MG/2 ML VIAL IV STA (23:33)
[2022-11-21] MEDS ORDERED: Zofran 4 MG/2 ML VIAL ONE (00:13)
[2022-11-21] MEDS ORDERED: Sodium Chloride 0.9% 1000 ML 1,000 ML ONE (00:14)
[2022-11-21 00:19] LABS: Absolute Neutrophil Ct (ANC) 5.83 x10^3/uL (1.4-6.9); BASOPHIL % 0.4 % (0.0-0.4); Basophil (Absolute #) 0.03 x10^3/uL (0-0.4); Eosinophil % 2.2 % (0.00-5.0); Eosinophil (Absolute #) 0.17 x10^3/uL (0-0.5); Hematocrit 25.2 % (35-47); Hemoglobin 7.9 g/dL (12.0-16.0); IMMATURE GRAN # 0.08 x10^3u/L (0.00-0.03); Lymphocyte (Absolute #) 0.51 x10^3/uL (1.0-4.6); Lymphocytes % 6.7 % (24.0-44.0); Mean Cell Volume 109.1 fL (78-100); Mean Corpuscular Hemoglobin 34.2 pg (26-32); Mean Corpuscular Hgb Concent. 31.3 g/dL (32-36); Mean Platelet Volume 10.1 fL (7.5-11.0); Monocyte (Absolute #) 1.02 x10^3/uL (0.0-1.3); Monocytes % 13.4 % (0.0-12.0); Neutrophil % 76.3 % (36.0-66.0); Platelet Count 124 x10^3/uL (150-450); Red Blood Count 2.31 x10^6/uL (4.1-5.4); Red Cell Distribution Width 18.3 % (11.5-14.0); White Blood Count 7.6 x10^3/uL (4.0-10.5)
[2022-11-21] MEDS ORDERED: TORAdol 30 mg Injection ONE (00:21)
[2022-11-21] MEDS ORDERED: TORAdol 30 mg Injection IV ONE (00:22)
[2022-11-21 00:31] LABS: ALBUMIN 3.3 g/dL (3.5-5.0); ALKALINE PHOSPHATASE 115 U/L (38-126); ANION GAP 10.5 MEQ/L (5-15); BLOOD UREA NITROGEN 21 mg/dL (7-17); CHLORIDE 96 mmol/L (98-107); Calcium 8.3 mg/dL (8.4-10.2); Carbon Dioxide 31 mmol/L (22-30); Creatinine 1 0.87 mg/dL (0.52-1.04); EST GLOMERULAR FILTRATION RATE > 60.0 ML/MIN; Glucose 132 mg/dL (74-106); Potassium 4.3 mmol/L (3.5-5.1); SGOT/AST 71 U/L (14-36); SGPT/ALT 53 U/L (0-35); SODIUM 133 mmol/L (137-145); Total Protein 6.8 g/dL (6.3-8.2)
[2022-11-21 00:50] LABS: Appearance Cloudy (Clear); Bilirubin Negative (Negative); Blood Small (Negative); Epithelial Cells Many /HPF (None Seen); Glucose, Urine Negative (Negative); Hyaline Casts NONE SEEN /LPF (0-2); Ketones Negative (Negative); Leukocyte Esterase Negative (Negative); Nitrite Negative (Negative); Protein,Urine Dip 30 (Negative); Specific Gravity 1.025 (1.005-1.030)
[2022-11-21 01:02] LABS: ADD URINE CULTURE? YES (NO); Bacteria Few /HPF (None Seen); Budding Yeast Few /HPF (None Seen)
[2022-11-21 01:02] LABS: INFLUENZA A NEGATIVE (NEGATIVE); INFLUENZA B NEGATIVE (NEGATIVE); RESPIRATORY SYNCTIAL VIRUS NEGATIVE (NEGATIVE); SARS-CoV-2 Xpert Express NEGATIVE (NEGATIVE)
[2022-11-21] MEDS ORDERED: ROCEPHIN 1 Gm-D5w 50 ml Bag** 1 G/50 ML IVPB IV STA (01:19)
[2022-11-21] MEDS ORDERED: Hydromorphone 1 mg/ml Injection IV ONE (01:21)
[2022-11-21 01:27] VITALS: BP 127/78; PULSE 90; O2SAT 98
[2022-11-21] MEDS ORDERED: ROCEPHIN 1 Gm-D5w 50 ml Bag** 1 G/50 ML IVPB IV ONE (01:35)
[2022-11-21] MEDS ORDERED: Hydromorphone 1 mg/ml Injection ONE (01:35)
[2022-11-21 01:49] LABS: Slide Review 1 YES
--- NOTE | 2022-11-21 07:15 | XRAY ---
Indication: Fever. History right upper lobe carcinoma. Comparison: September 29, 2022 Portable chest unchanged again demonstrating right upper lobe consolidation with right lung volume loss presumed known malignancy. Remaining heart and left lung unremarkable again with incidental right Port-A-Cath. No new cardiopulmonary abnormalities.
== END 2022-11-21 02:55 | disposition home or self-care (01) ==
LOC: ED 23:09
DX: H66.92 Otitis media, unspecified, left ear (principal); R50.9 Fever, unspecified; D64.9 Anemia, unspecified; R51.9 Headache, unspecified; R11.2 Nausea with vomiting, unspecified; I10 Essential (primary) hypertension; E78.5 Hyperlipidemia, unspecified; Z99.81 Dependence on supplemental oxygen; Z79.01 Long term (current) use of anticoagulants; Z79.899 Other long term (current) drug therapy; Z20.828 Contact with and (suspected) exposure to other viral communicable diseases
CPT/HCPCS: 0241U; 36000; 36415; 71045; 80053; 81001; 83605; 85025; 86308; 87040; 87086; 87651; 94760; 96360; 96365; 96374; 96375; 99284; J0696; J1170; J1885; J2405